=== PATIENT | male | born 1965 | race Caucasian/White ===

== ENCOUNTER 2018-10-21 06:39 | Inpatient (IN) | payer OTHER ==
[2018-10-21] MEDS ORDERED: CEFAZOLIN 2 GM/50 ML BAG ONE (07:13)
[2018-10-21 07:23] LABS: #Basophils 0.1 thou/uL (0.0-0.2); #Eosinphils 0.2 thou/uL (0.0-0.7); #Lymphocytes 1.2 thou/uL (1.20-3.40); #Monocytes 0.9 thou/uL (0.11-0.59); #Neutrophils 4.3 thou/uL (1.40-6.50); %Basophils 0.9 % (0.0-1.0); %Eosinophils 2.6 % (0.0-10.0); %Lymphocytes 18.2 % (21.0-51.0); %Neutrophils 65.4 % (42.0-75.0); Mean Corpuscular HGB CONC 33.2 g/dL (32.0-36.0); Mean Corpuscular Hemoglobin 33.9 pg (27.0-31.0); Mean Platelet Volume 7.8 fL (7.4-10.4); Platelet Count 208 thou/uL (130-400); RBC Distribution Width 12.2 % (11.5-14.5); Red Blood Cell (RBC) Count 4.72 mill/uL (4.70-6.10); White Blood Cell (WBC) Count 6.5 thou/uL (4.8-10.8)
[2018-10-21 07:46] LABS: Anion Gap 11 mmol/L (10-20); BUN (Urea Nitrogen) 15 mg/dL (8.4-25.7); Calc. Creatinine Clearance 122 mL/min (70-130); Calcium 10.3 mg/dL (7.8-10.44); Carbon Dioxide 27 mmol/L (22-29); Chloride 107 mmol/L (98-107); Estimated GFR-MDRD 80; Glucose 128 mg/dL (70-105); Potassium 4.4 mmol/L (3.5-5.1); Sodium 141 mmol/L (136-145)
[2018-10-21] MEDS ORDERED: Sodium Chloride 0.9% 10 ML ONE (08:47)
[2018-10-21] MEDS ORDERED: Midazolam HCl 2 mg/2 ml Vial ONE (08:53)
[2018-10-21] MEDS ORDERED: Fentanyl 100 MCG/2 ML VIAL ONE ×2 (09:00→10:42)
[2018-10-21] MEDS ORDERED: Morphine Sulfate 2 MG/ML SYRINGE SLOW IVP PRN (09:55)
[2018-10-21] MEDS ORDERED: PACU-Morphine 4MG/ML VIAL SLOW IVP PRN (09:55)
[2018-10-21] MEDS ORDERED: Promethazine HCl 25 MG/ML VIAL IM PRN ×2 (09:55→11:35)
[2018-10-21] MEDS ORDERED: HYDROmorphone 2 MG/ML VIAL SLOW IVP PRN (09:55)
[2018-10-21] MEDS ORDERED: Meperidine HCl/PF 25 MG/ML VIAL SLOW IVP PRN (09:55)
[2018-10-21] MEDS ORDERED: Ondansetron HCl/PF 4 MG/2 ML Vial IVP PRN (09:55)
[2018-10-21] MEDS ORDERED: Promethazine HCl 25 MG/ML VIAL SLOW IVP PRN (09:55)
[2018-10-21] MEDS ORDERED: Mag-Al 1200 mg/1200 mg/30 ML UDCUP PO PRN (11:35)
[2018-10-21] MEDS ORDERED: Promethazine 25 MG TAB PO PRN (11:35)
[2018-10-21] MEDS ORDERED: Promethazine HCl 12.5 MG SUPP PR PRN (11:35)
[2018-10-21] MEDS ORDERED: Morphine 4 MG/ML VIAL SLOW IVP PRN (11:35)
[2018-10-21] MEDS ORDERED: diphenhydrAMINE 25 MG CAP PO PRN (11:35)
[2018-10-21] MEDS ORDERED: HYDROcodone/Acetaminophen 10/325 mg Tablet PO PRN ×2 (11:35)
[2018-10-21] MEDS ORDERED: Ondansetron PF 4 MG/2 ML Vial IM PRN (11:35)
[2018-10-21] MEDS ORDERED: Milk Of Magnesia 30 ML UDCUP PO PRN (11:35)
[2018-10-21] MEDS ORDERED: traMADol HCl 50 MG TAB PO PRN (11:35)
[2018-10-21] MEDS ORDERED: diphenhydrAMINE 50 MG/ML VIAL IVP PRN (11:35)
[2018-10-21] MEDS ORDERED: Morphine 2 MG/ML SYRINGE SLOW IVP PRN (11:40)
[2018-10-21 12:48] VITALS: BMI 28.0
--- NOTE | 2018-10-21 13:38 | OP ---
DATE OF PROCEDURE: 10/21/2018 HOT DIP PLATER: Prabhjot. PROCEDURES PERFORMED: Exploration of spinal fusion, removal of hardware, left L5-S1, L3-L4, and L4-L5 decompressive laminectomy, posterolateral arthrodesis L3-L4 and L4-L5, pedicle screw instrumentation L3-L4, demineralized bone matrix, local morselized autograft. DESCRIPTION OF PROCEDURE: The patient was brought to the operating room and intubated. He was rolled in a prone position on gel flat chest rolls. Previous incision was re-opened and extended superiorly, exposing L3 through the sacrum. We identified the previous hardware and it was completely covered over in bone. On one side, we drilled out the bone to identify the screw heads and lauren attachments and removed single securing nut on the right at this level. We could not, however, remove the lauren and the screw head attachment because it was with bone. We found his bone to be extremely hard. I concluded that it would be too destructive to remove further bone in an effort to remove hardware at L5-S1, and therefore aborted further removal of hardware at this stage. Next, we performed complete L4 and inferior L3 laminectomy, decompressing the L3-L4 and L4-L5 interspace. Again, he had a massive amount of very hard bone requiring extensive drilling to accomplish a decompression. Next, we placed pedicle screws at right L3 and right L4, which was exceptionally difficult given the hard bone. We broke at least 1 pedicle probe. Pedicle screws were successfully placed at L3-L4. The lauren was secured between the screws and connected by nuts, which were final tightened. The wound was then extensively irrigated and an adequate hemostasis was secured. Combination of demineralized bone matrix and local morselized autograft was laid bilaterally at L4-L5 for an [place] fusion here and on the left side at L3-L4. Vancomycin powder was applied and the wound was then closed in anatomic layers over a drain. Job ID: [id number]
[2018-10-21] MEDS ORDERED: Bisacodyl 10 MG SUPP PR PRN (14:52)
[2018-10-21] MEDS ORDERED: Senokot S 8.6-50 MG TAB PO PRN (14:52)
[2018-10-21] MEDS ORDERED: hydrALAZINE 20 MG/ML VIAL SLOW IVP PRN (14:52)
[2018-10-21] MEDS ORDERED: Loratadine 10 MG TAB PO PRN (14:52)
[2018-10-21] MEDS ORDERED: Zolpidem Tartrate 5 MG TAB PO PRN (14:52)
[2018-10-21] MEDS ORDERED: Loperamide HCl 2 MG CAP PO PRN (14:52)
[2018-10-21] MEDS ORDERED: Cepastat Lozenges 1 LOZ PO PRN (14:52)
[2018-10-21] MEDS ORDERED: Sodium Chloride 0.65% Nasal 44 ML BOT EA NARE PRN (14:52)
[2018-10-21] MEDS ORDERED: Artificial Tears 18 DROP/0.9 ML EA EYE PRN (14:52)
[2018-10-21] MEDS ORDERED: Diabetic Tussin 200 MG/10 ML UDCUP PO PRN (14:52)
[2018-10-21] MEDS ORDERED: Eucerin (Mineral Oil/Petrolatum,White) 30 gm Jar TOP PRN (14:52)
[2018-10-21] MEDS: CEFAZOLIN 2 GM/50 ML-DEXTROSE 2 GM in Premix Bag 1 BAG IVPB SCH (15:40)
--- NOTE | 2018-10-21 15:40 | PDOC.PN ---
- Subjective Encounter Start Date: 10/21/18 Encounter Start Time: 15:37 -: old records requested/rev Patient seen and examined. No new complaints. pt is admitted for lumbar laminectomy consulted for medical management - Objective Resuscitation Status - Order Detail: 10/21/18 14:53 Resuscitation Status Routine Resuscitation Status: FULL: Full Resuscitation MAR Reviewed: Yes Vital Signs & Weight: Vital Signs (12 hours) Temp Pulse Resp BP Pulse Ox 10/21/18 15:30 98.2 F 99 18 131/62 94 L 10/21/18 12:35 98.3 F 70 18 141/82 H 96 Weight Weight 230 lb I&O: 10/20/18 10/21/18 10/22/18 06:59 06:59 06:59 Intake Total 290 Output Total 20 Balance 270 Result Diagrams: 10/21/18 07:14 10/21/18 07:14 Phys Exam - Physical Examination Constitutional: NAD HEENT: PERRLA, moist MMs, sclera anicteric Neck: no JVD, supple Respiratory: no wheezing, no rales, no rhonchi Cardiovascular: RRR, no significant murmur, no rub Gastrointestinal: soft, non-tender, no distention, positive bowel sounds drain in back+ Musculoskeletal: no edema, pulses present Neurological: non-focal, normal sensation, moves all 4 limbs Lymphatic: no nodes Psychiatric: normal affect, A&O x 3 Skin: no rash, normal turgor Dx/Plan (1) S/P lumbar laminectomy Code(s): Z98.890 - OTHER SPECIFIED POSTPROCEDURAL STATES Status: Acute (2) Hypertension Code(s): I10 - ESSENTIAL (PRIMARY) HYPERTENSION Status: Chronic (3) Dyslipidemia Code(s): E78.5 - HYPERLIPIDEMIA, UNSPECIFIED Status: Chronic - Plan cont current plan of care, plan discussed w/ family, PT/OT * home medication reconciled * BP well controlled * his pain is well controlled * he did very well with PT today * discussed with * code status addressed and he is full code * medication reviewed as below * symptomatic treatment. Review of Systems - Review of Systems ENT: negative: Ear Pain, Ear Discharge, Nose Pain, Nose Discharge, Nose Congestion, Mouth Pain, Mouth Swelling, Throat Pain, Throat Swelling, Other Respiratory: negative: Cough, Dry, Shortness of Breath, Hemoptysis, SOB with Excertion, Pleuritic Pain, Sputum, Wheezing Cardiovascular: negative: chest pain, palpitations, orthopnea, paroxysmal nocturnal dyspnea, edema, light headedness, other Gastrointestinal: negative: Nausea, Vomiting, Abdominal Pain, Diarrhea, Constipation, Melena, Hematochezia, Other Genitourinary: negative: Dysuria, Frequency, Incontinence, Hematuria, Retention , Other Musculoskeletal: negative: Neck Pain, Shoulder Pain, Arm Pain, Back Pain, Hand Pain, Leg Pain, Foot Pain, Other Skin: negative: Rash, Lesions, Carlos, Bruising, Other - Medications/Allergies Allergies/Adverse Reactions: Allergies Allergy/AdvReac Type Severity Reaction Status Date / Time No Known Allergies Allergy Verified 10/21/18 12:47 Medications: Current Medications Hydrocodone Bitart/Acetaminophen ([place] 5/325) 1 tab PO Q4H PRN PRN Reason: Moderate Pain (4-6) Al Hydroxide/Mg Hydroxide (Maalox) 30 ml PO Q4H PRN PRN Reason: Heartburn or Indigestion Amlodipine Besylate (Norvasc) 10 mg PO QAM [place] Artificial Tears (Tears Naturale) 2 drop EA EYE PRN PRN PRN Reason: Dry Eyes Bisacodyl (Dulcolax) 10 mg IN DAILYPRN PRN PRN Reason: Constipation Clonidine (Catapres) 0.1 mg PO QAM [place] Diphenhydramine HCl (Benadryl) 25 mg PO Q6H PRN PRN Reason: Itching Diphenhydramine HCl (Benadryl) 25 mg IVP Q6H PRN PRN Reason: Itching Famotidine (Pepcid) 20 mg PO BID [facility] Guaifenesin (Robitussin Sf) 200 mg PO Q4H PRN PRN Reason: Cough Hydralazine HCl (Apresoline) 10 mg SLOW IVP Q4H PRN PRN Reason: SBP > 180 and HR < 70 Cefazolin Sodium/Dextrose 2 gm (/ Device) 50 mls @ 100 mls/hr IVPB 0800,1600, 2359 [place] Lisinopril (Zestril) 20 mg PO QAM [place] Loperamide HCl (Imodium) 2 mg PO PRN PRN PRN Reason: Diarrhea/Loose Stools Loratadine (Claritin) 10 mg PO DAILYPRN PRN PRN Reason: Sinus Symptoms Magnesium Hydroxide (Milk Of Magnesium) 30 ml PO Q12H PRN PRN Reason: Constipation Mineral Oil/White Petrolatum (Eucerin Cream) 0 gm TOP BIDPRN PRN PRN Reason: Dry Skin Morphine Sulfate (Morphine) 4 mg SLOW IVP Q1H PRN PRN Reason: SEVERE BREAKTHROUGH PAIN Morphine Sulfate (Morphine) 2 mg SLOW IVP Q1H PRN PRN Reason: Moderate Breakthrough Pain Ondansetron HCl (Zofran) 4 mg IM Q24H PRN PRN Reason: Nausea/Vomiting Promethazine HCl (Phenergan) 12.5 mg IM Q4H PRN PRN Reason: Nausea/Vomiting Promethazine HCl (Phenergan) 12.5 mg PO Q4H PRN PRN Reason: Nausea/Vomiting Promethazine HCl (Phenergan Suppository) 12.5 mg IN Q4H PRN PRN Reason: Nausea/Vomiting Senna/Docusate Sodium (Senokot S) 2 tab PO BID PRN PRN Reason: Constipation Simvastatin (Zocor) 20 mg PO HS [place] Sodium Chloride (Flush - Normal Saline) 10 ml IVF Q12HR [place] Sodium Chloride (Flush - Normal Saline) 10 ml IVF PRN PRN PRN Reason: Saline Flush Sodium Chloride ([place] Nasal [place] 0.65%) 0 ml EA NARE QIDPRN PRN PRN Reason: Nasal Congestion Throat Lozenges (Cepastat Lozenges) 1 shadi PO Q2H PRN PRN Reason: Sore Throat Tizanidine HCl (Zanaflex) 4 mg PO Q6H PRN PRN Reason: MUSCLE SPASM Tramadol HCl (Ultram) 50 mg PO Q6H PRN PRN Reason: PAIN (1-3) Tramadol HCl (Ultram) 100 mg PO Q6H PRN PRN Reason: PAIN (4-6) Zolpidem Tartrate (Ambien) 5 mg PO HSPRN PRN PRN Reason: Insomnia
[2018-10-21] MEDS ORDERED: Lidocaine 1% PF 5 ML VIAL ONE (21:41)
[2018-10-21] MEDS ORDERED: PROVENTIL INHALER 6.7 G (200 INHALATIONS) ONE (21:41)
[2018-10-21] MEDS ORDERED: Dexamethasone 20 MG/5 ML VIAL ONE (21:41)
[2018-10-21] MEDS ORDERED: Glycopyrrolate 0.2 MG/ML 5 ML SYRINGE ONE (21:41)
[2018-10-21] MEDS ORDERED: Ondansetron PF 4 MG/2 ML Vial ONE (21:41)
[2018-10-21] MEDS ORDERED: PROPOFOL 200 MG/20 ML VIAL ONE (21:41)
[2018-10-21] MEDS: Simvastatin 20 MG TAB PO SCH (21:49)
[2018-10-21] MEDS: Famotidine 20 MG TAB PO SCH (21:51)
[2018-10-22] MEDS: CEFAZOLIN 2 GM/50 ML-DEXTROSE 2 GM in Premix Bag 1 BAG IVPB SCH ×4 (00:43→23:44)
[2018-10-22] MEDS: tiZANidine HCl 4 MG TAB PO PRN ×3 (08:37→20:16)
[2018-10-22] MEDS: traMADol HCl 50 MG TAB PO PRN ×2 (08:37→14:29)
[2018-10-22] MEDS: cloNIDine 0.1 MG TAB PO SCH (08:38)
[2018-10-22] MEDS: Lisinopril 20 MG TAB PO SCH (08:38)
[2018-10-22] MEDS: Amlodipine 10 MG TAB PO SCH (08:38)
[2018-10-22] MEDS: Famotidine 20 MG TAB PO SCH ×2 (08:39→20:18)
[2018-10-22] MEDS: HYDROcodone/Acetaminophen 5/325 mg Tablet PO PRN ×3 (09:47→18:26)
--- NOTE | 2018-10-22 11:40 | PDOC.PN ---
- Subjective Encounter Start Date: 10/22/18 Encounter Start Time: 08:20 Patient seen and examined. No new complaints. No overnight events - Objective Resuscitation Status - Order Detail: 10/21/18 14:53 Resuscitation Status Routine Resuscitation Status: FULL: Full Resuscitation MAR Reviewed: Yes Vital Signs & Weight: Vital Signs (12 hours) Temp Pulse Resp BP BP BP Pulse Ox 10/22/18 11:08 98.6 F 76 16 131/84 97 10/22/18 08:38 74 124/76 10/22/18 07:31 98.4 F 74 16 124/76 98 10/22/18 03:36 98.4 F 76 19 122/60 98 10/22/18 00:00 98.4 F 67 22 H 143/79 H 98 Weight Weight 230 lb I&O: 10/21/18 10/22/18 10/23/18 06:59 06:59 06:59 Intake Total 4030 Output Total 1025 Balance 3005 Result Diagrams: 10/21/18 07:14 10/21/18 07:14 Phys Exam - Physical Examination Constitutional: NAD HEENT: PERRLA, moist MMs, sclera anicteric Neck: no JVD, supple Respiratory: no wheezing, no rales, no rhonchi Cardiovascular: RRR, no significant murmur, no rub Gastrointestinal: soft, non-tender, no distention, positive bowel sounds drain in place in back Musculoskeletal: no edema, pulses present Neurological: non-focal, normal sensation, moves all 4 limbs Lymphatic: no nodes Psychiatric: normal affect, A&O x 3 Skin: no rash, normal turgor Dx/Plan (1) S/P lumbar laminectomy Code(s): Z98.890 - OTHER SPECIFIED POSTPROCEDURAL STATES Status: Acute (2) Hypertension Code(s): I10 - ESSENTIAL (PRIMARY) HYPERTENSION Status: Chronic (3) Dyslipidemia Code(s): E78.5 - HYPERLIPIDEMIA, UNSPECIFIED Status: Chronic (4) Tobacco abuse Code(s): Z72.0 - TOBACCO USE Status: Chronic - Plan cont current plan of care, plan discussed w/ family * medication reviewed as below * symptomatic treatment * pain controlled * drain care as per primary team * counselled to avoid smoking * discussed with bedside. Review of Systems - Review of Systems ENT: negative: Ear Pain, Ear Discharge, Nose Pain, Nose Discharge, Nose Congestion, Mouth Pain, Mouth Swelling, Throat Pain, Throat Swelling, Other Respiratory: negative: Cough, Dry, Shortness of Breath, Hemoptysis, SOB with Excertion, Pleuritic Pain, Sputum, Wheezing Cardiovascular: negative: chest pain, palpitations, orthopnea, paroxysmal nocturnal dyspnea, edema, light headedness, other Gastrointestinal: negative: Nausea, Vomiting, Abdominal Pain, Diarrhea, Constipation, Melena, Hematochezia, Other Genitourinary: negative: Dysuria, Frequency, Incontinence, Hematuria, Retention , Other Musculoskeletal: negative: Neck Pain, Shoulder Pain, Arm Pain, Back Pain, Hand Pain, Leg Pain, Foot Pain, Other - Medications/Allergies Allergies/Adverse Reactions: Allergies Allergy/AdvReac Type Severity Reaction Status Date / Time No Known Allergies Allergy Verified 10/21/18 12:47 Medications: Current Medications Hydrocodone Bitart/Acetaminophen ([place] 5/325) 1 tab PO Q4H PRN PRN Reason: Moderate Pain (4-6) Last Admin: 10/22/18 09:47 Dose: 1 tab Al Hydroxide/Mg Hydroxide (Maalox) 30 ml PO Q4H PRN PRN Reason: Heartburn or Indigestion Amlodipine Besylate (Norvasc) 10 mg PO [facility] Last Admin: 10/22/18 08:38 Dose: 10 mg Artificial Tears (Tears Naturale) 2 drop EA EYE PRN PRN PRN Reason: Dry Eyes Bisacodyl (Dulcolax) 10 mg CO DAILYPRN PRN PRN Reason: Constipation Clonidine (Catapres) 0.1 mg PO [facility] Last Admin: 10/22/18 08:38 Dose: 0.1 mg Diphenhydramine HCl (Benadryl) 25 mg PO Q6H PRN PRN Reason: Itching Diphenhydramine HCl (Benadryl) 25 mg IVP Q6H PRN PRN Reason: Itching Famotidine (Pepcid) 20 mg PO BID [facility] Last Admin: 10/22/18 08:39 Dose: 20 mg Guaifenesin (Robitussin Sf) 200 mg PO Q4H PRN PRN Reason: Cough Hydralazine HCl (Apresoline) 10 mg SLOW IVP Q4H PRN PRN Reason: SBP > 180 and HR < 70 Cefazolin Sodium/Dextrose 2 gm (/ Device) 50 mls @ 100 mls/hr IVPB 0800,1600, 2359 [facility] Last Admin: 10/22/18 08:38 Dose: 50 mls Lisinopril (Zestril) 20 mg PO QAM [facility] Last Admin: 10/22/18 08:38 Dose: 20 mg Loperamide HCl (Imodium) 2 mg PO PRN PRN PRN Reason: Diarrhea/Loose Stools Loratadine (Claritin) 10 mg PO DAILYPRN PRN PRN Reason: Sinus Symptoms Magnesium Hydroxide (Milk Of Magnesium) 30 ml PO Q12H PRN PRN Reason: Constipation Mineral Oil/White Petrolatum (Eucerin Cream) 0 gm TOP BIDPRN PRN PRN Reason: Dry Skin Morphine Sulfate (Morphine) 4 mg SLOW IVP Q1H PRN PRN Reason: SEVERE BREAKTHROUGH PAIN Morphine Sulfate (Morphine) 2 mg SLOW IVP Q1H PRN PRN Reason: Moderate Breakthrough Pain Ondansetron HCl (Zofran) 4 mg IM Q24H PRN PRN Reason: Nausea/Vomiting Promethazine HCl (Phenergan) 12.5 mg IM Q4H PRN PRN Reason: Nausea/Vomiting Promethazine HCl (Phenergan) 12.5 mg PO Q4H PRN PRN Reason: Nausea/Vomiting Promethazine HCl (Phenergan Suppository) 12.5 mg CO Q4H PRN PRN Reason: Nausea/Vomiting Senna/Docusate Sodium (Senokot S) 2 tab PO BID PRN PRN Reason: Constipation Simvastatin (Zocor) 20 mg PO HS [facility] Last Admin: 10/21/18 21:49 Dose: 20 mg Sodium Chloride (Flush - Normal Saline) 10 ml IVF Q12HR [facility] Last Admin: 10/22/18 08:39 Dose: 10 ml Sodium Chloride (Flush - Normal Saline) 10 ml IVF PRN PRN PRN Reason: Saline Flush Sodium Chloride ([place] Nasal [place] 0.65%) 0 ml EA NARE QIDPRN PRN PRN Reason: Nasal Congestion Throat Lozenges (Cepastat Lozenges) 1 shadi PO Q2H PRN PRN Reason: Sore Throat Tizanidine HCl (Zanaflex) 4 mg PO Q6H PRN PRN Reason: MUSCLE SPASM Last Admin: 10/22/18 08:37 Dose: 4 mg Tramadol HCl (Ultram) 50 mg PO Q6H PRN PRN Reason: PAIN (1-3) Tramadol HCl (Ultram) 100 mg PO Q6H PRN PRN Reason: PAIN (4-6) Last Admin: 10/22/18 08:37 Dose: 100 mg Zolpidem Tartrate (Ambien) 5 mg PO HSPRN PRN PRN Reason: Insomnia
[2018-10-22] MEDS: Simvastatin 20 MG TAB PO SCH (20:16)
[2018-10-23] MEDS: HYDROcodone/Acetaminophen 5/325 mg Tablet PO PRN (04:10)
[2018-10-23] MEDS: tiZANidine HCl 4 MG TAB PO PRN (04:13)
[2018-10-23] MEDS: CEFAZOLIN 2 GM/50 ML-DEXTROSE 2 GM in Premix Bag 1 BAG IVPB SCH (08:06)
[2018-10-23] MEDS: cloNIDine 0.1 MG TAB PO SCH (08:07)
[2018-10-23] MEDS: Lisinopril 20 MG TAB PO SCH (08:07)
[2018-10-23] MEDS: Amlodipine 10 MG TAB PO SCH (08:07)
[2018-10-23] MEDS: Famotidine 20 MG TAB PO SCH (08:07)
[2018-10-23 08:08] VITALS: BP 131/78
[2018-10-23 08:36] VITALS: TEMP 98.4
--- NOTE | 2018-10-23 09:19 | PRG ---
DATE OF SERVICE: 10/23/2018 PROGRESS NOTE/SIGN-OUT NOTE/TRANSFER OF CARE NOTE PRIMARY CARE PHYSICIAN: Dr. Doreen Amaro. DATE OF DISCHARGE: 10/23/2018. DISCHARGE DISPOSITION: Home. PRIMARY DISCHARGE DIAGNOSIS: Status post removal of hardware and decompressive laminectomy and fusion. SECONDARY DISCHARGE DIAGNOSES: Dyslipidemia, hypertension, and tobacco abuse disorder. PRIMARY PROCEDURE/OPERATION: Neurosurgeon Dr. Goldsmith did a hardware removal and decompressive laminectomy and fusion. RADIOLOGICAL INVESTIGATION: None. SIGNIFICANT LABORATORY DATA: WBC 6.5, hemoglobin 16.0, MCV 102, platelet 208. Sodium 141, potassium 4.4, BUN 15, creatinine 0.98, and calcium 10.3. DISCHARGE MEDICATIONS: [place] 10 one tablet q.6 hourly p.r.n., Zanaflex 4 mg q.6 hourly p.r.n., amlodipine 10 mg daily, Keflex 500 mg p.o. q.i.d. as prescribed, clonidine 0.1 mg daily, lisinopril 20 mg p.o. daily, naproxen 550 mg p.o. daily p.r.n., Zocor 20 mg p.o. daily, and tramadol ER 50 mg p.o. daily. CONTRAINDICATION: None. CODE STATUS: Full code. INPATIENT CAR INSPECTION AND REPAIR MANAGER: Dr. Goldsmith was primary, Sound Team was consulted for medical comanagement. TEST RESULTS PENDING ON DISCHARGE: None. ALLERGIES: NO KNOWN DRUG ALLERGIES. DISCHARGE PLAN: Post-hospital, the patient will follow up with Dr. Goldsmith as instructed. The patient will make appointment with primary care physician. HOSPITAL COURSE: A 53-year-old male, who was electively admitted by Dr. Goldsmith for his chronic back pain problem. The patient underwent removal of hardware and decompressive laminectomy and fusion procedure. Postprocedure, the patient was kept on the surgical floor. At that point, Sound Team was consulted for medical management. The patient's all medical problems remained stable. We continued the patient's selected home medications while in hospital as well as upon discharge. His pain was well controlled. By the time of discharge, the patient is ambulatory, tolerating p.o. well, and he is hemodynamically stable. The patient is seen and examined at bedside today. REVIEW OF SYSTEMS: All review of systems reviewed with him and negative. PHYSICAL EXAMINATION: VITAL SIGNS: Currently, temperature 99, pulse 83, respiratory rate 18, blood pressure 115/69, and saturation 95% on room air. Weight 230 pounds. GENERAL: The patient is currently alert, awake, and in no obvious acute distress. HEAD: Normocephalic and atraumatic. EYES: Pupils are round and reactive to light. Extraocular muscles are intact. ENT: Oropharynx within normal limits. Moist mucous membranes. No oral lesions. No pharyngeal erythema. No exudate. NECK: Supple. No JVD. No thyromegaly. No carotid bruit. LUNGS: Clear to auscultation without any rhonchi or rales. CARDIAC: S1 and S2 regular without any murmur. ABDOMEN: Soft and benign without any tenderness. EXTREMITIES: No edema. NEUROLOGIC: Nonfocal examination. While in hospital, the patient was given counseling to avoid smoking and we also advised to hold blood pressure medication if blood pressure systolic is below 120. Job ID: [id number]
--- NOTE | 2018-10-24 04:36 | DIS ---
DATE OF ADMISSION: 10/21/2018 DATE OF DISCHARGE: 10/23/2018 HOSPITAL COURSE: The patient is a 53-year-old male, who underwent extension of lumbar fusion to L3-L5. Following his surgery, he was transitioned to the Med/Surg floor, where his pain was well controlled with p.o. medications, he was tolerating a regular diet and voiding appropriately. MARK drain was placed intraoperatively and had 225 output over the first night and this trended down with 100 mL out on postoperative day #2. MARK drain was removed on postoperative day #2. On his exam this morning, he was awake, alert, and comfortable. He has free active range of motion of all extremities. No focal motor deficits. He is wearing his LSO brace. His incision is dry and intact. He is ambulating with steady gait. We will plan to dismiss the patient to home following removal of the MARK drain. I have discussed home care precautions. We will plan to follow up with the patient in 2 weeks. He has been provided with scripts for hydrocodone, Zanaflex, and Keflex. Job ID: [id number]
== END 2018-10-23 09:30 | disposition home or self-care (01) | DRG 460 ==
LOC: SURG A 06:39 → SURG B 13:59
PROVIDERS: ADMIT Neurological Surgery; ATTEND Neurological Surgery
PROC: 0SP00AZ Removal of Interbody Fusion Device from Lumbar Vertebral Joint, Open Approach (ICD-10-PCS; principal; 2018-10-21)
PROC: 0SG1071 Fusion of 2 or more Lumbar Vertebral Joints with Autologous Tissue Substitute, Posterior Approach, Posterior Column, Open Approach (ICD-10-PCS; 2018-10-21)
PROC: 01NB0ZZ Release Lumbar Nerve, Open Approach (ICD-10-PCS; 2018-10-21)
DX: M43.16 Spondylolisthesis, lumbar region (principal)
CPT/HCPCS: 36415; 76001; 80048; 85025; 93005; 93010; C1713; C1768; G8978-GP-CL; G8979-GP-CJ; J1100; J1200; J2001; J2250; J2405; J2704; J3010; J3370; J3490

== ENCOUNTER 2018-11-07 08:44 | Outpatient (CLI) | payer OTHER ==
--- NOTE | 2018-11-07 09:18 | RAD ---
LUMBAR SPINE TWO VIEWS: History: 53-year-old male with history of back pain, M54.9. Post-operative from second surgery, 10-21-18. Comparison: None. FINDINGS: Laminectomy changes from L3 to S1. Pedicle screws stabilize L5-S1 as well as L3-4. Minimal anterolist hesis of L4 on L5 and moderate anterolisthesis of L5 on S1 and very mild retrolisthesis of L3 on L4. IMPRESSION: Recent post op changes. Mild anterolisthesis of L4 on L5 and moderate anterolisthesis of L5 on S1. No prior exams. POS: ANAIS
== END 2018-11-07 08:45 | disposition home or self-care (01) ==
LOC: TBSIIMAG 08:44
PROVIDERS: ATTEND Neurological Surgery
DX: M54.9 Dorsalgia, unspecified (principal); M43.16 Spondylolisthesis, lumbar region; M43.17 Spondylolisthesis, lumbosacral region; Z98.890 Other specified postprocedural states
CPT/HCPCS: 72100

== ENCOUNTER 2018-12-25 12:39 | Outpatient (CLI) | payer OTHER ==
--- NOTE | 2018-12-25 13:10 | RAD ---
LUMBAR SPINE RADIOGRAPH 2 TO 3 VIEW SERIES: INDICATION: Intervertebral disk degeneration lumbar spine region. FINDINGS: Redemonstration of multilevel posterior fusion which spans the L3 through S1 segments, with right ped icle screws at L3-4 and bilateral pedicle screws at L5-S1 with intervening vertical connecting rods. Evidence of posterior decompression spans these levels. There is moderate multilevel degenerative c hange. Grade I spondylolisthesis at L4-5 is present, stable. There is stable mild retrolisthesis at L2-3 and L3-4. IMPRESSION: Stable postoperative lumbar spine. POS: JAVED
== END 2018-12-25 12:40 | disposition home or self-care (01) ==
LOC: TBSIIMAG 12:39
PROVIDERS: ATTEND Neurological Surgery
DX: M51.36 Other intervertebral disc degeneration, lumbar region (principal); Z98.890 Other specified postprocedural states
CPT/HCPCS: 72100